=== PATIENT | female | born 1995 | race Caucasian/White ===

== ENCOUNTER 2020-10-28 20:48 | Emergency (ER) | payer OTHER, SELFPAY ==
[2020-10-28 20:53] VITALS: BP 144/82; PULSE 114; RESP 17; TEMP 36.3; O2SAT 99
--- NOTE | 2020-10-28 21:10 | PC.NURSE ---
patient brought back to ED room 3 with c/o allergic reaction initially. patient here with increased anxiety. patient states she has been treated for anxiety and depression for the last 2 months. both have been debilitating. she has not been working or driving due to increased anxiety. started on Prozac but didnt take today. c/o tremor in her hands. mother in room. patient placed on rn cardiac. updated on plan. waiting for further orders from provider.
[2020-10-28] MEDS: LORazepam INJ (*CRX) 2 MG/ML VIAL 1 MG IV PUSH (21:59)
--- NOTE | 2020-10-28 22:14 | ED.GENADULT ---
HPI - General Adult General Chief complaint: Allergic Reaction Stated complaint: reaction to paxil Time Seen by Provider: 10/28/20 21:48 History of Present Illness HPI narrative: Patient is a 25-year-old female who presents the emergency department with chief complaint of feeling anxious. Patient reports that she was started on Paxil 10 days ago and is also being treated for migraines. Patient states that she started feeling very anxious and has not been able to sleep for several days. Patient states that she has a jittering-like feeling in over her body patient denies chest pain denies shortness of breath reports that she has not had any suicidal or homicidal ideation. Related Data Home Medications Medication Instructions Recorded Confirmed meclizine 25 mg PO TID PRN 10/28/20 ondansetron [Zofran ODT] 4 mg PO Q6H PRN 10/28/20 paroxetine HCl [Paxil] 10 mg PO QAM 10/28/20 Allergies Allergy/AdvReac Type Severity Reaction Status Date / Time No Known Allergies Allergy Verified 10/28/20 20:48 Review of Systems Review of Systems: Narrative: A 10 system review of systems was completed on the patient and is negative except for what is stated in the HPI. Nursing and ancillary documentation was reviewed. [facility] Social History Social History Gender identity (if verbalized by the patient): Female Comments Patient has history of migraines and history of anxiety. Social history the patient denies smoking Exam Narrative: Exam Narrative: GENERAL: Well-appearing, well-nourished, and in no acute distress. HEAD: Normocephalic, atraumatic. EYES: PERRLA and EOMI. ENT: Nares clear, no rhinorrhea or epistaxis. Mucous membranes moist. NECK: Supple. CHEST: Clear to auscultation. No respiratory distress. HEART: Regular rate and rhythm. No murmur heard. Normal peripheral pulses. ABDOMEN: Soft, nontender, nondistended, normal active bowel sounds. EXTREMITIES: Normal range of motion. No edema. SKIN: Warm, dry, no rash. NEURO: No focal deficits. Alert and oriented x3. PSYCH: Normal mood and affect. Course Vital Signs Vital signs: Vital Signs Temperature 36.3 C L 10/28/20 20:53 Pulse Rate 114 H 10/28/20 20:53 Respiratory Rate 17 10/28/20 20:53 Blood Pressure 144/82 H 10/28/20 20:53 Pulse Oximetry 99 10/28/20 20:53 Temperature 36.3 C L 10/28/20 20:53 Pulse Rate 114 H 10/28/20 20:53 Respiratory Rate 17 10/28/20 20:53 Blood Pressure 144/82 H 10/28/20 20:53 Pulse Oximetry 99 10/28/20 20:53 Medical Decision Making Vital Signs Vital Signs: Vital Signs Temperature 36.3 C L 10/28/20 20:53 Pulse Rate 114 H 10/28/20 20:53 Respiratory Rate 17 10/28/20 20:53 Blood Pressure 144/82 H 10/28/20 20:53 Pulse Oximetry 99 10/28/20 20:53 Temperature 36.3 C L 10/28/20 20:53 Pulse Rate 114 H 10/28/20 20:53 Respiratory Rate 17 10/28/20 20:53 Blood Pressure 144/82 H 10/28/20 20:53 Pulse Oximetry 99 10/28/20 20:53 Lab Data Result diagrams: 10/28/20 22:15 10/28/20 22:15 Labs: Lab Results 10/28/20 10/28/20 10/28/20 Range/Units 22:15 22:15 22:15 WBC 10.2 H (4.5-10.0) K/mm3 RBC 4.47 (4.2-5.4) M/mm3 Hgb 12.9 (12.0-15.0) g/dL Hct 38.0 (37.0-47.0) % MCV 85.0 (80-100) fl MCH 28.9 (26-34) pg MCHC 33.9 (32-36) g/dl RDW 12.4 (11.5-14.5) % Plt Count 320 (150-375) k/mm3 MPV 12.0 H (7.4-10.4) fl Immature Gran % (Auto) 0.2 (0-0.5) % Neut % (Auto) 72.1 (45.5-73.1) % Lymph % (Auto) 21.8 (18.3-44.2) % [place] % (Auto) 4.9 (2.6-8.5) % Eos % (Auto) 0.2 (0-4.4) % Baso % (Auto) 0.8 (0.2-1.2) % Lymph # (Auto) 2.22 (0.9-3.2) K/mm3 [place] # (Auto) 0.5 (0.1-0.6) K/mm3 Eos # (Auto) 0.0 (0-0.3) K/mm3 Baso # (Auto) 0.1 (0.0-0.1) K/mm3 Abs Immat Gran (auto) 0.02 (0.00-0.031) K/mm3 Absolute Neuts (a
--- NOTE | 2020-10-28 22:15 | PC.NURSE ---
provider in room now.
[2020-10-28] MEDS: SODIUM CHLORIDE 0.9% IV 1,000 ML 999 ML IV CONT (22:25)
--- NOTE | 2020-10-28 22:30 | PC.NURSE ---
SL inserted. labs drawn. medication given as ordered. all explained to patient. mother in room. 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
[2020-10-28 23:01] LABS: Basophils Absolute Auto 0.1 K/mm3 (0.0-0.1); Basophils Percent Auto 0.8 % (0.2-1.2); Eosinophils Percent Auto 0.2 % (0-4.4); Hemoglobin 12.9 g/dL (12.0-15.0); Immature Granulocyte Absolute 0.02 K/mm3 (0.00-0.031); Immature Granulocyte Percent A 0.2 % (0-0.5); Lymphocytes Absolute Auto 2.22 K/mm3 (0.9-3.2); Lymphocytes Percent Auto 21.8 % (18.3-44.2); Mean Corpuscular HGB Conc 33.9 g/dl (32-36); Mean Corpuscular Hemoglobin 28.9 pg (26-34); Monocytes Absolute Auto 0.5 K/mm3 (0.1-0.6); Monocytes Percent Auto 4.9 % (2.6-8.5); Neutrophils Absolute Auto 7.3 K/mm3 (1.3-6.7); Neutrophils Percent Auto 72.1 % (45.5-73.1); Platelet Count Result 320 k/mm3 (150-375); Red Blood Count 4.47 M/mm3 (4.2-5.4); Red Cell Distribution Width 12.4 % (11.5-14.5); White Blood Count 10.2 K/mm3 (4.5-10.0)
[2020-10-28 23:13] LABS: Alanine Aminotransferase 24 U/L (4-35); Albumin Level 4.8 g/dL (3.5-5.1); Alkaline Phosphatase 61 U/L (38-126); Anion Gap 12 mmol/L (8-16); Aspartate Amino Transferase 27 U/L (14-36); Bilirubin,Total 0.7 mg/dL (0.2-1.3); Blood Urea Nitrogen 13 mg/dL (7-17); Carbon Dioxide 19 mmol/L (22-30); Chloride 107 mmol/L (98-107); Creatine Kinase 58 U/L (30-135); Estimated CRCL calculation 117 ml/min; Estimated Glomerular Filt Rate > 60; Glucose 80 mg/dL (65-105); Potassium 3.7 mmol/L (3.4-5.0); Sodium 138 mmol/L (137-145)
[2020-10-28 23:17] VITALS: PULSE 87; RESP 13; O2SAT 100
[2020-10-28 23:30] VITALS: PULSE 76; RESP 10; O2SAT 100
[2020-10-28 23:31] VITALS: BP 126/81; PULSE 97; RESP 11; O2SAT 100
[2020-10-28 23:45] VITALS: PULSE 104; RESP 17; O2SAT 100
[2020-10-29] VITALS: PULSE 114; RESP 15; O2SAT 100
[2020-10-29 00:02] VITALS: BP 132/109; PULSE 107; RESP 20; O2SAT 100
[2020-10-29] MEDS: LORazepam INJ (*CRX) 2 MG/ML VIAL 1 MG IV PUSH (00:08)
[2020-10-29 00:15] VITALS: PULSE 105; RESP 11; O2SAT 100
[2020-10-29 00:30] VITALS: PULSE 107; RESP 14; O2SAT 100
[2020-10-29 00:32] VITALS: BP 108/70; PULSE 102; RESP 18; O2SAT 99
== END 2020-10-29 00:49 | disposition home or self-care (01) ==
PROVIDERS: Emergency Provider Emergency Medicine
DX: F41.9 Anxiety disorder, unspecified (principal); G47.00 Insomnia, unspecified; T43.225A Adverse effect of selective serotonin reuptake inhibitors, initial encounter
CPT/HCPCS: 36415; 80053; 82550; 85025; 96361; 96374; 99284; J2060; J7030

== ENCOUNTER 2021-01-14 17:58 | Emergency (ER) | payer OTHER, SELFPAY ==
[2021-01-14 18:13] VITALS: BP 117/74; PULSE 102; RESP 18; TEMP 36.6; O2SAT 100
[2021-01-14 18:24] LABS: Basophils Absolute Auto 0.1 K/mm3 (0.0-0.1); Basophils Percent Auto 0.7 % (0.2-1.2); Eosinophils Absolute Auto 0.1 K/mm3 (0-0.3); Eosinophils Percent Auto 0.9 % (0-4.4); Hematocrit 38.5 % (37.0-47.0); Hemoglobin 12.9 g/dL (12.0-15.0); Immature Granulocyte Absolute 0.02 K/mm3 (0.00-0.031); Immature Granulocyte Percent A 0.2 % (0-0.5); Lymphocytes Absolute Auto 2.47 K/mm3 (0.9-3.2); Lymphocytes Percent Auto 22.9 % (18.3-44.2); Mean Corpuscular HGB Conc 33.5 g/dl (32-36); Mean Corpuscular Hemoglobin 29.5 pg (26-34); Mean Corpuscular Volume 87.9 fl (80-100); Monocytes Absolute Auto 0.5 K/mm3 (0.1-0.6); Monocytes Percent Auto 4.8 % (2.6-8.5); Neutrophils Absolute Auto 7.6 K/mm3 (1.3-6.7); Neutrophils Percent Auto 70.5 % (45.5-73.1); Platelet Count Result 336 k/mm3 (150-375); Red Blood Count 4.38 M/mm3 (4.2-5.4); Red Cell Distribution Width 12.5 % (11.5-14.5); White Blood Count 10.8 K/mm3 (4.5-10.0)
[2021-01-14 18:33] LABS: Alanine Aminotransferase 38 U/L (4-35); Albumin Level 4.5 g/dL (3.5-5.1); Alkaline Phosphatase 64 U/L (38-126); Anion Gap 9 mmol/L (8-16); Aspartate Amino Transferase 35 U/L (14-36); Bilirubin,Total 0.5 mg/dL (0.2-1.3); Blood Urea Nitrogen 11 mg/dL (7-17); Calcium 9.7 mg/dL (8.4-10.2); Carbon Dioxide 22 mmol/L (22-30); Chloride 109 mmol/L (98-107); Estimated CRCL calculation 123 ml/min; Estimated Glomerular Filt Rate > 60; Glucose 98 mg/dL (65-105); Lipase 65 U/L (23-300); Potassium 4.1 mmol/L (3.4-5.0); Sodium 140 mmol/L (137-145)
[2021-01-14 18:35] LABS: Add Urine Microscopic? YES; Amorphous Sediment Urine Few; Appearance Urine Cloudy (Clear); Bacteria Urine Trace /hpf; Bilirubin Urine Negative (Negative); Blood Urine Negative (Negative); Color Urine Yellow (Yellow); Glucose Urine UA Negative (Negative); Ketones Urine Negative (Negative); Leukocyte Esterase Ur 3+ LEU/UL (Negative); Mucus Urine Moderate /lpf; Nitrate Urine Negative (Negative); Protein Urine 1+ mg/dL (Negative); RBC Urine 0-2 /hpf (0-2); Specific Grav Ur 1.028 (1.001-1.035); Squamous Epithelial Cell Urine Many /hpf (Few)
[2021-01-14] MEDS: HYOSCYAMINE SULFATE 0.125 MG TABLET PO (19:48)
[2021-01-14] MEDS: LORazepam INJ (*CRX) 2 MG/ML VIAL 1 MG IV PUSH (19:48)
[2021-01-14] MEDS: FAMOTIDINE 20 MG TABLET PO (19:48)
--- NOTE | 2021-01-14 20:08 | ED.GENADULT ---
HPI - General Adult General Chief complaint: Abdominal Pain Stated complaint: abd pain Time Seen by Provider: 01/14/21 19:27 Source: patient and RN notes reviewed Mode of arrival: ambulatory Limitations: no limitations History of Present Illness HPI narrative: Patient is a 25-year-old female who presented to emergency department with GI upset patient ate [place] food and had acute onset of abdominal pain patient has been having issues with abdominal pain that has been going on for over a month and she is currently scheduled to see cardiology and gastroenterology for this patient notes that she gets daily GI upset and on arrival to emergency department has had marked improvement patient denies any fever chills nausea vomiting at this time or any change in bowel habits Related Data Home Medications Medication Instructions Recorded Confirmed meclizine 25 mg PO TID PRN 10/28/20 ondansetron [Zofran ODT] 4 mg PO Q6H PRN 10/28/20 paroxetine HCl [Paxil] 10 mg PO QAM 10/28/20 Allergies Allergy/AdvReac Type Severity Reaction Status Date / Time No Known Allergies Allergy Verified 10/28/20 20:48 Review of Systems Review of Systems: All systems reviewed & are unremarkable except as noted in HPI and below PMFSH Past Medical History Medical History (Updated 01/14/21 @ 20:13 by Richmond Anaya PA-C) Anxiety Social History Social History Gender identity (if verbalized by the patient): Female Exam Narrative: Exam Narrative: GENERAL: Well-appearing, obese, and in no acute distress. HEAD: Normocephalic, atraumatic. EYES: PERRLA and EOMI. ENT: Nares clear, no rhinorrhea or epistaxis. Mucous membranes moist. CHEST: Clear to auscultation. No respiratory distress. No wheezes rales or rhonchi HEART: Regular rate and rhythm. No murmur heard. Normal peripheral pulses. ABDOMEN: Soft, nontender, nondistended EXTREMITIES: Normal range of motion. No edema. SKIN: Warm, dry, no rash. NEURO: No focal deficits. Alert and oriented x3. PSYCH: Normal mood and affect. Course Course Emergency Course: Patient in the room no distress aware of case findings treatment plan and diagnosis. Patient with improved condition with medications patient on arrival in no distress and will be discharged home with continued plan for GI. Patient will be placed on low-fat diet given reasons to return ABCs and vital signs intact and stable Vital Signs Vital signs: Vital Signs Temperature 97.9 F 01/14/21 18:13 Pulse Rate 102 H 01/14/21 18:13 Respiratory Rate 18 01/14/21 18:13 Blood Pressure 117/74 01/14/21 18:13 Pulse Oximetry 100 01/14/21 18:13 Temperature 97.9 F 01/14/21 18:13 Pulse Rate 102 H 01/14/21 18:13 Respiratory Rate 18 01/14/21 18:13 Blood Pressure 117/74 01/14/21 18:13 Pulse Oximetry 100 01/14/21 18:13 Medical Decision Making MDM Narrative Medical decision making narrative: Patient with anxiety possibly irritable bowels could be gastric ulcer gastritis in no distress at this time nontender abdominal exam will be discharged home placed on medications and low-fat diet with continued plan for GI follow-up Vital Signs Vital Signs: Vital Signs Temperature 97.9 F 01/14/21 18:13 Pulse Rate 102 H 01/14/21 18:13 Respiratory Rate 18 01/14/21 18:13 Blood Pressure 117/74 01/14/21 18:13 Pulse Oximetry 100 01/14/21 18:13 Temperature 97.9 F 01/14/21 18:13 Pulse Rate 102 H 01/14/21 18:13 Respiratory Rate 18 01/14/21 18:13 Blood Pressure 117/74 01/14/21 18:13 Pulse Oximetry 100 01/14/21 18:13 Lab Data Result diagrams: 01/14/21 18:19 01/14/21 18:19 Labs: Lab Results 01/14/21 01/14/21 01/14/21 Range/Units 18:19 18:19 18:24 WBC 10.8 H (4.5-10.0) K/mm3 RBC 4.38 (4.2-5.4) M/mm3 Hgb 12.9 (12.0-15.0) g/dL Hct 38.5 (37.0-47.0) % MCV 87.9 (80-100) fl MCH 29.5
[2021-01-14 20:21] VITALS: BP 112/68; PULSE 86; RESP 16; TEMP 36.7; O2SAT 100
== END 2021-01-14 20:22 | disposition home or self-care (01) ==
PROVIDERS: Emergency Medicine; Emergency Provider Emergency Medicine; PCP Family Medicine Sports Medicine
DX: R10.9 Unspecified abdominal pain (principal); F41.9 Anxiety disorder, unspecified
CPT/HCPCS: 36415; 80053; 81001; 81025; 83690; 85025; 87086; 87088; 96374; 99284; A9270; J2060

== ENCOUNTER 2025-06-01 03:49 | Emergency (ER) | payer BC, SELFPAY ==
--- NOTE | ~2025-06-01 | CT_ITS ---
CT abdomen pelvis w con Clinical History: ruq and right back pain, suspect GB . Comparison: None Technique: Axial images lung bases to symphysis pubis 100 mL Omnipaque 350 Coronal, sagittal reformats CT images acquired with automatic exposure control for dose reduction DLP: 1428 mGy-cm Findings: Lung bases: Clear. Visualized heart and pericardium: Unremarkable. Liver: Enlarged. Gallbladder: Stone. Mild wall thickening. Spleen: Unremarkable. Pancreas: Unremarkable. Adrenal glands: Unremarkable. Kidneys: Right kidney- No hydronephrosis. No renal stones. Left kidney- No hydronephrosis. No renal stones. Distal esophagus/stomach: Unremarkable. Small bowel loops: Normal caliber and wall thickness. Colon: Normal caliber and wall thickness. Normal RLQ appendix. Nodes: No enlarged nodes. Peritoneum: No ascites. No free air. Urinary bladder: Unremarkable. Uterus: Unremarkable. Adnexa: No masses. Bones: No acute bony abnormality. Soft tissues: Unremarkable. Aorta: No aneurysm or dissection. IVC: Unremarkable. Main portal vein/SMV/splenic vein: Patent. IMPRESSION: 1. Gallstone, with mild nonspecific gallbladder wall thickening. If clinical ambiguity for cholecystitis, recommend ultrasound and/or HIDA scan. 2. No other acute abnormality identified. Reviewed, dictated and finalized at location R. IMPRESSION: 1. Gallstone, with mild nonspecific gallbladder wall thickening. If clinical a mbiguity for cholecystitis, recommend ultrasound and/or HIDA scan. 2. No other acute abnormality identified.
--- NOTE | ~2025-06-01 | US_ITS ---
US abdomen limited EXAMINATION: US Abdomen Complete INDICATION: Evaluate for cholecystitis PROCEDURE: Realtime High Resolution abdomen ultrasound. COMPARISON: CT chest abdomen and pelvis 06/01/2025 FINDINGS: Gallbladder wall is thickened measuring 6 mm. There is a stone in the gallbladder neck. Gallbladder appears contracted. No sonographic Byrnes's sign. Common duct measures 5 mm. Visualized liver is unremarkable. Visualized spleen and pancreas are unremarkable. No hydronephrosis. Visualized kidneys are grossly unremarkable. IMPRESSION: 1: Gallbladder wall thickening with a stone in the gallbladder neck. Acute cholecystitis is possible. However, there is no sonographic Byrnes's sign according to the vascular technologist sonographer. Consider a HIDA scan for further assessment. Reviewed, dictated and finalized at location Q. IMPRESSION: 1: Gallbladder wall thickening with a stone in the gallbladder neck. Acute chol ecystitis is possible. However, there is no sonographic Byrnes's sign according to the vascular technologist sonographer. Consider a HIDA scan for further assessment.
[2025-06-01 03:55] VITALS: BP 138/91; PULSE 70; RESP 18; O2SAT 98
--- NOTE | 2025-06-01 04:39 | ED.ABDPAIN ---
HPI - Abdominal Pain General Chief Complaint: Abdominal Pain <Eric Paez MD - Last Filed: 06/04/25 21:32> Stated Complaint: back and abd pain <Eric Paez MD - Last Filed: 06/04/25 21:32> Time Seen by Provider: 06/01/25 03:53 <Eric Paez MD - Last Filed: 06/04/25 21:32> History of Present Illness HPI narrative: 29-year-old female presenting to the emergency department with epigastric abdominal and back pain she thinks is related to her gallbladder. States that the pain woke her from sleep and then she took a Tylenol No. 3 at home with some mild relief and then she had another flare up the middle night. Associated some nausea but no vomiting. No urinary complaints or defecation complaints. No bloody bowel movements. No abdominal surgical history. She states she has had symptoms like this before but never been actually evaluated for gallbladder issues or gallstones. No traumatic injuries. Denies chance of . <Eric Paez MD - Last Filed: 06/04/25 21:32> Related Data Home Medications: Home Medications ?Medication ?Instructions ?Recorded ?Confirmed ?Last Taken ?Type meclizine 25 mg tablet 25 mg PO TID PRN Dizziness 10/28/20 Unknown History ondansetron 4 mg disintegrating 4 mg PO Q6H PRN Nausea 10/28/20 Unknown History tablet paroxetine HCl 10 mg tablet (Paxil) 10 mg PO QAM 10/28/20 Unknown History <Eric Paez MD - Last Filed: 06/04/25 21:32> Allergies/Adverse Reactions: Allergies Allergy/AdvReac Type Severity Reaction Status Date / Time No Known Allergies Allergy Verified 06/01/25 04:03 <Eric Paez MD - Last Filed: 06/04/25 21:32> Review of Systems Review of Systems: As reviewed above in HPI <Eric Paez MD - Last Filed: 06/04/25 21:32> [facility] Past Medical History Medical History: Medical History Anxiety <Eric Paez MD - Last Filed: 06/04/25 21:32> Social History Social History: Social History Gender identity (if verbalized by the patient): Female <Eric Paez MD - Last Filed: 06/04/25 21:32> Exam Narrative: GENERAL: [Well-appearing, well-nourished, and in no acute distress.] HEAD: [Normocephalic, atraumatic.] EYES: [PERRLA and EOMI.] ENT: Nares clear, no rhinorrhea or epistaxis. Mucous membranes moist. NECK: Supple. CHEST: [Clear to auscultation. No respiratory distress.] HEART: [Regular rate and rhythm]. No murmur heard. [Normal peripheral pulses.] ABDOMEN: [Soft, nondistended], tenderness to palpation in the epigastrium and right upper quadrant but negative Byrnes sign, [No rigidity or guarding] EXTREMITIES: Normal range of motion. [No edema.] SKIN: Warm, dry, no rash. NEURO: [No focal deficits]. Alert and oriented [x3.] PSYCH: [Normal mood and affect.] <Eric Paez MD - Last Filed: 06/04/25 21:32> Course Vital Signs Vital signs: Vital Signs Pulse Rate 70 06/01/25 03:55 Respiratory Rate 18 06/01/25 03:55 Blood Pressure 138/91 H 06/01/25 03:55 Pulse Oximetry 98 06/01/25 03:55 Oxygen Delivery Room Air 06/01/25 03:55 Temperature 36.6 C 06/01/25 11:18 Pulse Rate 79 06/01/25 11:18 Respiratory Rate 18 06/01/25 11:18 Blood Pressure 121/96 H 06/01/25 11:18 Pulse Oximetry 100 06/01/25 11:18 Oxygen Delivery Room Air 06/01/25 03:55 <Eric Paez MD - Last Filed: 06/04/25 21:32> Vital Signs Pulse Rate 70 06/01/25 03:55 Respiratory Rate 18 06/01/25 03:55 Blood Pressure 138/91 H 06/01/25 03:55 Pulse Oximetry 98 06/01/25 03:55 Oxygen Delivery Room Air 06/01/25 03:55 Temperature 36.6 C 06/01/25 11:18 Pulse Rate 79 06/01/25 11:18 Respiratory Rate 18 06/01/25 11:18 Blood Pressure 121/96 H 06/01/25 11:18 Pulse Oximetry 100 06/01/25 11:18 Oxygen Delivery Room Air 06/01/25 03:55 <Dominick Hays MD - Last Filed: 06/01/25 13:09> MDM - Abdominal Pain MDM Narrative Medical decision making narrative: 29-year-old female presenting to the emergency department with epigastric abdominal and back pain she thinks is related to her gallbladder. States that the pain woke her from sleep and then she took a Tylenol No. 3 at home with some mild relief and then she had another flare up the middle night. Associated some nausea but no vomiting. No urinary complaints or defecation complaints. No bloody bowel movements. No abdominal surgical history. She states she has had symptoms like this before but never been actually evaluated for gallbladder issues or gallstones. No traumatic injuries. Denies chance of . Patient is hemodynamically stable, 99% on room air. No significant blood pressure concerns or tachycardia. Tender epigastric abdomen but no Byrnes sign. Symptoms consistent with gastritis, gastroenteritis, cholecystitis, symptomatic cholelithiasis, kidney stone. CT scan with contrast obtained for further evaluation. Given pain control medications including Pepcid and Toradol as well as Zofran and fluids. Laboratory studies ordered as well as urinalysis and test. Patient's workup reveals a minor leukocytosis 11.1, no anemia. Normal platelet count. Electrolytes unremarkable. Normal kidney function. Normal glucose and LFTs. Normal lipase. Urinalysis with bacteria white blood cells and leukocyte esterase but negative . Consistent with mild UTI. CT scan pending. Patient had improvement pain control medications and hemodynamically stable. Signed out to morning physician pending CT scan and final disposition likely discharge if improved. <Eric Paez MD - Last Filed: 06/04/25 21:32> 29-year-old female presenting to the emergency department with epigastric abdominal and back pain she thinks is related to her gallbladder. States that the pain woke her from sleep and then she took a Tylenol No. 3 at home with some mild relief and then she had another flare up the middle night. Associated some nausea but no vomiting. No urinary complaints or defecation complaints. No bloody bowel movements. No abdominal surgical history. She states she has had symptoms like this before but never been actually evaluated for gallbladder issues or gallstones. No traumatic injuries. Denies chance of . Patient is hemodynamically stable, 99% on room air. No significant blood pressure concerns or tachycardia. Tender epigastric abdomen but no Byrnes sign. Symptoms consistent with gastritis, gastroenteritis, cholecystitis, symptomatic cholelithiasis, kidney stone. CT scan with contrast obtained for further evaluation. Given pain control medications including Pepcid and Toradol as well as Zofran and fluids. Laboratory studies ordered as well as urinalysis and test. Patient's workup reveals a minor leukocytosis 11.1, no anemia. Normal platelet count. Electrolytes unremarkable. Normal kidney function. Normal glucose and LFTs. Normal lipase. Urinalysis with bacteria white blood cells and leukocyte esterase but negative . Consistent with mild UTI. CT scan pending. Patient had improvement pain control medications and hemodynamically stable. Signed out to morning physician pending CT scan and final disposition likely discharge if improved. --- Patient care was signed out to me by the overnight physician with imaging pending. On re-evaluation patient states her symptoms are improved. Patient had no reproducible tenderness to palpation. CT scan was concerning for possible cholecystitis. Ultrasound was ordered and patient had no sonographic Byrnes sign. Patient did have evidence of gallstones. Patient family updated the results of the workup. Patient will be treated for urinary tract infection. Patient will be provided medications for pain control for nausea control. Patient was encouraged of close follow-up with surgery. Patient was also advised to follow a low-fat diet and to even start with a clear liquid diet for the next few days. <Dominick Hays MD - Last Filed: 06/01/25 13:09> Medical Records Attestation: I reviewed the patient's medical records. <Eric Paez MD - Last Filed: 06/04/25 21:32> Lab Data Attestation: I reviewed the patient's lab results. <Eric Paez MD - Last Filed: 06/04/25 21:32> Result diagrams: 06/01/25 04:54 06/01/25 04:54 <Eric Paez MD - Last Filed: 06/04/25 21:32> Labs: Lab Results 06/01/25 06/01/25 Range/Units 04:54 04:57 WBC 11.1 H (4.5-10.0) K/mm3 RBC 4.27 (4.2-5.4) M/mm3 Hgb 12.3 (12.0-15.0) g/dL Hct 37.1 (37.0-47.0) % MCV 86.9 (80-100) fl MCH 28.8 (26-34) pg MCHC 33.2 (32-36) g/dl RDW 13.2 (11.5-14.5) % Plt Count 371 (150-375) k/mm3 MPV 11.4 H (7.4-10.4) fl Immature Gran % (Auto) 0.3 (0-0.5) % Neut % (Auto) 65.5 (45.5-73.1) % Lymph % (Auto) 27.6 (18.3-44.2) % [place] % (Auto) 4.8 (2.6-8.5) % Eos % (Auto) 1.1 (0-4.4) % Baso % (Auto) 0.7 (0.2-1.2) % Lymph # (Auto) 3.07 (0.9-3.2) K/mm3 [place] # (Auto) 0.5 (0.1-0.6) K/mm3 Eos # (Auto) 0.1 (0-0.3) K/mm3 Baso # (Auto) 0.1 (0.0-0.1) K/mm3 Abs Immat Gran (auto) 0.03 (0.00-0.031) K/mm3 Absolute Neuts (auto) 7.3 H (1.3-6.7) K/mm3 Absolute Nucleated RBC 0.000 (0.0-0.012) K/mm3 Nucleated RBC % 0.0 (0.0-0.2) % Sodium 137 (137-145) mmol/L Potassium 4.1 (3.4-5.0) mmol/L Chloride 107 (98-107) mmol/L Carbon Dioxide 21 L (22-30) mmol/L Anion Gap 9 (4-12) mmol/L BUN 10 (7-17) mg/dL Creatinine 0.86 (0.7-1.0) mg/dL Estim Creat Clear Calc Not Reportable Estimated GFR > 60 (59 - ) Glucose 102 (65-110) mg/dL Calcium 9.1 (8.4-10.2) mg/dL Total Bilirubin 0.3 (0.2-1.3) mg/dL AST 31 (14-36) U/L ALT 34 (6-35) U/L Alkaline Phosphatase 70 (38-126) U/L Total Protein 7.7 (6.3-8.2) g/dL Albumin 4.1 (3.5-5.1) g/dL Lipase 51 (23-300) U/L Urine Color Yellow (Yellow) Urine Appearance Cloudy H (Clear) Urine pH 5.5 (5.0-9.0) Ur Specific [place] 1.023 (1.001-1.035) Urine Protein Negative (Negative) mg/dL Urine Glucose (UA) Negative (Negative) mg/dL Urine Ketones Trace H (Negative) mg/dL Ur Blood (Man) Negative (Negative) Urine Nitrate Negative (Negative) Urine Bilirubin Negative (Negative) Urine Urobilinogen 1.0 (<2.0) mg/dL Leukocyte Esterase Rfl 1+ H (Negative) VLADIMIR/UL Urine RBC 0-2 (0-2) /hpf Urine WBC 6-10 H (0-3) /hpf Ur Squamous Epith Cells Moderate (Few) /hpf Urine Bacteria 1+ H /hpf Urine Casts 0-2 POC Urine HCG, Qual Negative (Negative) <Eric Paez MD - Last Filed: 06/04/25 21:32> Lab Results 06/01/25 06/01/25 Range/Units 04:54 04:57 WBC 11.1 H (4.5-10.0) K/mm3 RBC 4.27 (4.2-5.4) M/mm3 Hgb 12.3 (12.0-15.0) g/dL Hct 37.1 (37.0-47.0) % MCV 86.9 (80-100) fl MCH 28.8 (26-34) pg MCHC 33.2 (32-36) g/dl RDW 13.2 (11.5-14.5) % Plt Count 371 (150-375) k/mm3 MPV 11.4 H (7.4-10.4) fl Immature Gran % (Auto) 0.3 (0-0.5) % Neut % (Auto) 65.5 (45.5-73.1) % Lymph % (Auto) 27.6 (18.3-44.2) % [place] % (Auto) 4.8 (2.6-8.5) % Eos % (Auto) 1.1 (0-4.4) % Baso % (Auto) 0.7 (0.2-1.2) % Lymph # (Auto) 3.07 (0.9-3.2) K/mm3 [place] # (Auto) 0.5 (0.1-0.6) K/mm3 Eos # (Auto) 0.1 (0-0.3) K/mm3 Baso # (Auto) 0.1 (0.0-0.1) K/mm3 Abs Immat Gran (auto) 0.03 (0.00-0.031) K/mm3 Absolute Neuts (auto) 7.3 H (1.3-6.7) K/mm3 Absolute Nucleated RBC 0.000 (0.0-0.012) K/mm3 Nucleated RBC % 0.0 (0.0-0.2) % Sodium 137 (137-145) mmol/L Potassium 4.1 (3.4-5.0) mmol/L Chloride 107 (98-107) mmol/L Carbon Dioxide 21 L (22-30) mmol/L Anion Gap 9 (4-12) mmol/L BUN 10 (7-17) mg/dL Creatinine 0.86 (0.7-1.0) mg/dL Estim Creat Clear Calc Not Reportable Estimated GFR > 60 (59 - ) Glucose 102 (65-110) mg/dL Calcium 9.1 (8.4-10.2) mg/dL Total Bilirubin 0.3 (0.2-1.3) mg/dL AST 31 (14-36) U/L ALT 34 (6-35) U/L Alkaline Phosphatase 70 (38-126) U/L Total Protein 7.7 (6.3-8.2) g/dL Albumin 4.1 (3.5-5.1) g/dL Lipase 51 (23-300) U/L Urine Color Yellow (Yellow) Urine Appearance Cloudy H (Clear) Urine pH 5.5 (5.0-9.0) Ur Specific [place] 1.023 (1.001-1.035) Urine Protein Negative (Negative) mg/dL Urine Glucose (UA) Negative (Negative) mg/dL Urine Ketones Trace H (Negative) mg/dL Ur Blood (Man) Negative (Negative) Urine Nitrate Negative (Negative) Urine Bilirubin Negative (Negative) Urine Urobilinogen 1.0 (<2.0) mg/dL Leukocyte Esterase Rfl 1+ H (Negative) VLADIMIR/UL Urine RBC 0-2 (0-2) /hpf Urine WBC 6-10 H (0-3) /hpf Ur Squamous Epith Cells Moderate (Few) /hpf Urine Bacteria 1+ H /hpf Urine Casts 0-2 POC Urine HCG, Qual Negative (Negative) <Dominick Hays MD - Last Filed: 06/01/25 13:09> Imaging Data Radiologist's impression: ITS Impressions Abdomen/Pelvis CT 06/01/25 07:50 IMPRESSION: 1. Gallstone, with mild nonspecific gallbladder wall thickening. If clinical ambiguity for cholecystitis, recommend ultrasound and/or HIDA scan. 2. No other acute abnormality identified. Abdomen Ultrasound 06/01/25 10:05 IMPRESSION: 1: Gallbladder wall thickening with a stone in the gallbladder neck. Acute cholecystitis is possible. However, there is no sonographic Byrnes's sign according to the isotope technologist. Consider a HIDA scan for further assessment. <Eric Paez MD - Last Filed: 06/04/25 21:32> ITS Impressions Abdomen/Pelvis CT 06/01/25 07:50 IMPRESSION: 1. Gallstone, with mild nonspecific gallbladder wall thickening. If clinical ambiguity for cholecystitis, recommend ultrasound and/or HIDA scan. 2. No other acute abnormality identified. Abdomen Ultrasound 06/01/25 10:05 IMPRESSION: 1: Gallbladder wall thickening with a stone in the gallbladder neck. Acute cholecystitis is possible. However, there is no sonographic Byrnes's sign according to the isotope technologist. Consider a HIDA scan for further assessment. <Dominick Hays MD - Last Filed: 06/01/25 13:09> Discharge Plan Discharge Clinical Impression: Abdominal pain, UTI (urinary tract infection), Biliary colic <Eric Paez MD - Last Filed: 06/04/25 21:32> Patient Disposition: Home <Eric Paez MD - Last Filed: 06/04/25 21:32> Condition: Stable <Eric Paez MD - Last Filed: 06/04/25 21:32> Instructions: Antibiotic Form, Biliary Colic (ED), Urinary Tract Infection in Women (ED), Low Fat Diet (ED), Clear Liquid Diet (ED) <Eric Paez MD - Last Filed: 06/04/25 21:32> Additional Instructions: Urine was concerning for urinary tract infection and you were treated with antibiotics in the emergency department will be discharged home with antibiotics, take antibiotics until completed. Have close follow-up with your primary care physician for additional outpatient gallbladder testing including a HIDA scan. Clear liquid diet for the next 1-3 days. Advance to a low-fat diet as tolerated. [place] for pain control and Zofran as needed for nausea control. If you have any worsening symptoms please call or return to the emergency department. Have close follow-up with surgery <Eric Paez MD - Last Filed: 06/04/25 21:32> Patient Language: [place] <Eric Paez MD - Last Filed: 06/04/25 21:32> Prescriptions: New hydrocodone-acetaminophen 5-325 mg tablet 1 tablet PO Q12H PRN (Reason: pain) Qty: 14 0RF cephalexin 500 mg capsule 500 mg PO Q8H 7 Days Qty: 21 0RF ondansetron 4 mg tablet,disintegrating 4 mg PO Q8H PRN (Reason: nausea and vomiting) Qty: 14 0RF No Action paroxetine HCl [Paxil] 10 mg Tablet 10 mg PO QAM meclizine 25 mg Tablet 25 mg PO TID PRN (Reason: Dizziness) ondansetron [Zofran ODT] 4 mg Tablet,Disintegrating 4 mg PO Q6H PRN (Reason: Nausea) hyoscyamine sulfate [Levsin] 0.125 mg tablet 0.125 mg PO QID Qty: 7 0RF famotidine [Pepcid] 20 mg tablet 20 mg PO BID Qty: 14 0RF <Eric Paez MD - Last Filed: 06/04/25 21:32> Follow-up/Referrals: Asif,Du Tran MD [Non-Staff, Family Practice] Jeremie Sanders DO [Physician, General Surgery] <Eric Paez MD - Last Filed: 06/04/25 21:32>
[2025-06-01] MEDS: SODIUM CHLORIDE 0.9% IV 1,000 ML 999 ML IV CONT (04:59)
[2025-06-01 05:00] LABS: BEDSIDEPREGUCG Negative (Negative)
[2025-06-01] MEDS: ONDANSETRON INJ 4 MG/2 ML VIAL IV PUSH (05:00)
[2025-06-01] MEDS: KETOROLAC 30 MG/ML VIAL (*BKC) IV PUSH (05:00)
[2025-06-01] MEDS: FAMOTIDINE 20 MG/2 ML VIAL IV PUSH (05:00)
[2025-06-01 05:01] VITALS: BP 116/72; PULSE 71; RESP 18; TEMP 36.9; O2SAT 100
[2025-06-01 05:01] LABS: Hematocrit 37.1 % (37.0-47.0); Hemoglobin 12.3 g/dL (12.0-15.0); Immature Granulocyte Percent A 0.3 % (0-0.5); Lymphocytes Absolute Auto 3.07 K/mm3 (0.9-3.2); Mean Corpuscular HGB Conc 33.2 g/dl (32-36); Mean Corpuscular Hemoglobin 28.8 pg (26-34); Mean Corpuscular Volume 86.9 fl (80-100); Nucleated Red Blood Cells Absolute Auto 0.000 K/mm3 (0.0-0.012); Nucleated Red Blood Cells Perc 0.0 % (0.0-0.2); Platelet Count Result 371 k/mm3 (150-375); Red Blood Count 4.27 M/mm3 (4.2-5.4); White Blood Count 11.1 K/mm3 (4.5-10.0)
[2025-06-01 05:06] LABS: Add Urine Microscopic? YES; Appearance Urine Cloudy (Clear); Glucose Urine UA Negative (Negative); Leukocyte Esterase Ur 1+ LEU/UL (Negative); Nitrate Urine Negative (Negative); Non Pathogenic Casts 0-2; Specific Grav Ur 1.023 (1.001-1.035)
[2025-06-01 05:25] LABS: Alanine Aminotransferase 34 U/L (6-35); Albumin Level 4.1 g/dL (3.5-5.1); Alkaline Phosphatase 70 U/L (38-126); Anion Gap 9 mmol/L (4-12); Aspartate Amino Transferase 31 U/L (14-36); Bilirubin,Total 0.3 mg/dL (0.2-1.3); Blood Urea Nitrogen 10 mg/dL (7-17); Calcium 9.1 mg/dL (8.4-10.2); Carbon Dioxide 21 mmol/L (22-30); Chloride 107 mmol/L (98-107); Estimated Glomerular Filt Rate > 60; Glucose 102 mg/dL (65-110); Lipase 51 U/L (23-300); Potassium 4.1 mmol/L (3.4-5.0); Sodium 137 mmol/L (137-145); Total Protein 7.7 g/dL (6.3-8.2)
[2025-06-01 06:36] VITALS: BP 113/73; PULSE 65; RESP 14; O2SAT 98
[2025-06-01] MEDS: cefTRIAXone 1 GM in SODIUM CHLORIDE 0.9% IV 50 ML 100 ML IVPB (06:59)
--- NOTE | 2025-06-01 06:59 | PC.NURSE ---
no cultures per EDP
[2025-06-01 07:14] VITALS: BP 113/73; PULSE 60; RESP 18; TEMP 36.6; O2SAT 100
[2025-06-01 08:01] VITALS: BP 105/67; PULSE 63; RESP 16; O2SAT 100
[2025-06-01 11:18] VITALS: BP 121/96; PULSE 79; RESP 18; TEMP 36.6; O2SAT 100
== END 2025-06-01 11:21 | disposition home or self-care (01) ==
PROVIDERS: Emergency Provider Student in an Organized Health Care Education/Training Program
DX: K80.20 Calculus of gallbladder without cholecystitis without obstruction (principal); N39.0 Urinary tract infection, site not specified; F41.9 Anxiety disorder, unspecified; Z79.899 Other long term (current) drug therapy
CPT/HCPCS: 36415; 74177; 76705; 80053; 81001; 81025; 83690; 85025; 96361; 96365; 96375; 99284; J0696; J1885; J2405; J7030; Q9967